=== PATIENT | male | born 1975 | race African-American/Black ===

== ENCOUNTER 2017-05-12 16:44 | Emergency (ER) | payer SELFPAY ==
[~2017-05-12] VITALS: Ht 172.7 cm; Wt 100.0 kg
[2017-05-12 16:45] VITALS: PULSE 76; RESP 18; TEMP 98.6; O2SAT 100
--- NOTE | 2017-05-12 17:14 | PD ---
HPI Chief Complaint: Altered Mental Status Time Seen by Provider: 17:13 Travel History International Travel<30 days: No Contact w/Intl Traveler<30days: No Traveled to known affect area: No History of Present Illness HPI 41-year-old male came to the emergency room with history headache that started all of a sudden while he was playing basketball today at around 1 PM. He says that since then he has been sort of confused and cannot recall few details. He has been nauseous along with the headache. Patient usually does not get headaches. His current headache is 10 out of 10 and it is mostly in the front. Vital signs are stable. Denies any headaches in the past. Patient had blood test and CAT scan ordered in triage. [facility] Past Medical History Narrative Medical List of his past medical, surgical, social and family history reviewed from the nursing note. Social History Tobacco Use: Yes Allergies-Medications (Allergen,Severity, Reaction): Coded Allergies: No Known Allergies (Unverified , 05/12/17) Comments No known drug allergies Reported Meds & Prescriptions Reported Meds & Active Scripts Active Zofran Odt (Ondansetron Odt) 4 Mg Tab 4 Mg SL Q6HR PRN Narrative Medication Waiting for the nurse to do the med reconciliation. Review of Systems Except as stated in HPI: all other systems reviewed are Neg Neurologic: Positive: Headache Physical Exam Narrative GENERAL: Awake, confused, significant distress SKIN: Focused skin assessment warm/dry. HEAD: Atraumatic. Normocephalic. EYES: Pupils equal and round. No scleral icterus. No injection or drainage. ENT: No nasal bleeding or discharge. Mucous membranes pink and moist. NECK: Trachea midline. No JVD. CARDIOVASCULAR: Regular rate and rhythm. No murmur appreciated. RESPIRATORY: No accessory muscle use. Clear to auscultation. Breath sounds equal bilaterally. GASTROINTESTINAL: Abdomen soft, non-tender, nondistended. Hepatic and splenic margins not palpable. MUSCULOSKELETAL: No obvious deformities. No clubbing. No cyanosis. No edema. NEUROLOGICAL: Awake and alert. No obvious cranial nerve deficits. Motor grossly within normal limits. Normal speech. PSYCHIATRIC: Appropriate mood and affect; insight and judgment normal. Data Data Last Documented VS Orders Orders Electrocardiogram (05/12/17 17:01) Prothrombin Time / Inr (Pt) (05/12/17 17:01) Act Partial Throm Time (Ptt) (05/12/17 17:01) Complete Blood Count With Diff (05/12/17 17:01) Comprehensive Metabolic Panel (05/12/17 17:01) Ct Brain W/O Iv Contrast(Rout) (05/12/17 17:01) Sodium Chlor 0.9% 1000 Ml Inj (Ns 1000 M (05/12/17 17:45) Prochlorperazine Inj (Compazine Inj) (05/12/17 17:45) Ketorolac Inj (Toradol Inj) (05/12/17 19:00) Influenzae A/B Antigen (05/12/17 18:47) Sodium Chlor 0.9% 1000 Ml Inj (Ns 1000 M (05/12/17 19:30) Labs Laboratory Tests Test 05/12/17 17:45 White Blood Count 8.0 TH/MM3 Red Blood Count 4.81 MIL/MM3 Hemoglobin 15.1 GM/DL Hematocrit 43.3 % Mean Corpuscular Volume 90.1 FL Mean Corpuscular Hemoglobin 31.5 PG Mean Corpuscular Hemoglobin Concent 34.9 % Red Cell Distribution Width 14.2 % Platelet Count 221 TH/MM3 Mean Platelet Volume 8.3 FL Neutrophils (%) (Auto) 64.5 % Lymphocytes (%) (Auto) 29.0 % Monocytes (%) (Auto) 5.6 % Eosinophils (%) (Auto) 0.5 % Basophils (%) (Auto) 0.4 % Neutrophils # (Auto) 5.2 TH/MM3 Lymphocytes # (Auto) 2.3 TH/MM3 Monocytes # (Auto) 0.5 TH/MM3 Eosinophils # (Auto) 0.0 TH/MM3 Basophils # (Auto) 0.0 TH/MM3 CBC Comment DIFF FINAL Differential Comment Prothrombin Time 10.9 SEC Prothromb Time International Ratio 1.1 RATIO Activated Partial Thromboplast Time 27.6 SEC Blood Urea Nitrogen 15 MG/DL Creatinine 1.26 MG/DL Random Glucose 104 MG/DL Total Protein 7.7 GM/DL Albumin 4.1 GM/DL Calcium Level 9.3 MG/DL Alkaline Phosphatase 100 U/L Aspartate Amino Transf (AST/SGOT) 36 U/L Alanine Aminotransferase (ALT/SGPT) 29 U/L Total Bilirubin 0.6 MG/DL Sodium Level 139 MEQ/L Potassium Level 3.8 MEQ/L Chloride Level 106 MEQ/L Carbon Dioxide Level 27.6 MEQ/L Anion Gap 5 MEQ/L Estimat Glomerular Filtration Rate 63 ML/MIN [facility] Medical Decision Making Medical Screen Exam Complete: Yes Emergency Medical Condition: Yes Medical Record Reviewed: Yes Interpretation(s) Twelve-lead EKG was reviewed by me. Normal sinus rhythm, normal axis, nonspecific ST-T wave changes. Heart rate of 63 bpm Differential Diagnosis Intracranial bleed, migraine headache Narrative Course 6:[address] scan is negative for intracranial bleed. Awaiting for the blood test. Patient was given IV fluid bolus and IV Compazine. 6:48 PM blood test results back and within acceptable limits. Patient has not given a urine sample yet. Head CT is negative. I went back and reassessed him and he says his headache feels little better. His neck was supple. He started having some chills. I have ordered influenza and IV Toradol. The case will be signed over to the oncoming ER physician. Procedures EKG Prior to Arrival: No Scripts Ondansetron Odt (Zofran Odt) 4 Mg Tab 4 MG SL Q6HR Y for Nausea/Vomiting, #7 TAB 0 Refills Prov: Andreina Trinidad MD 05/12/17 Anant Valencia MD May 12, 2017 17:14
[2017-05-12] MEDS ORDERED: SODIUM CHLOR 0.9% 1000 ML INJ 1,000 ML IV ONE ×2 (17:45→19:30)
[2017-05-12] MEDS ORDERED: PROCHLORPERAZINE INJ 10 MG/2 ML VIAL IV PUSH ONE (17:45)
--- NOTE | 2017-05-12 17:55 | RADRPT ---
EXAM DATE/TIME: 05/12/2017 17:43 [place] COMPARISON: No previous studies available for comparison. INDICATIONS : Blurred vision and cephalgia. RADIATION DOSE: 37.50 CTDIvol (mGy) MEDICAL HISTORY : None SURGICAL HISTORY : None. ENCOUNTER: Initial ACUITY: 1 day PAIN SCALE: 5/10 LOCATION: Bilateral cranial TECHNIQUE: Multiple contiguous axial images were obtained of the head. Using automated exposure control and adj ustment of the mA and/or kV according to patient size, radiation dose was kept as low as reasonably a chievable to obtain optimal diagnostic quality images. DICOM format image data is available electro nically for review and comparison. FINDINGS: CEREBRUM: The ventricles are normal for age. No evidence of midline shift, mass lesion, hemorrhage or acute in farction. No extra-axial fluid collections are seen. POSTERIOR FOSSA: The cerebellum and brainstem are intact. The 4th ventricle is midline. The cerebellopontine angle i s unremarkable. EXTRACRANIAL: The visualized portion of the orbits is intact. SKULL: The calvaria is intact. No evidence of skull fracture. CONCLUSION: Normal examination for a patient of this age. Christian Sanchez MD on May 12, 2017 at 17:52 Board Certified Radiologist. This report was verified electronically.
[2017-05-12 18:03] LABS: AUTOMATED NEUTROPHIL # 5.2 TH/MM3 (1.8-7.7); BASOPHIL % 0.4 % (0.0-2.0); EOSINOPHIL % 0.5 % (0.0-4.0); HEMATOCRIT 43.3 % (39.0-51.0); HEMOGLOBIN 15.1 GM/DL (13.0-17.0); LYMPHOCYTE # 2.3 TH/MM3 (1.0-4.8); MEAN CELL VOLUME 90.1 FL (80.0-100.0); MEAN CORPUSCULAR HEMOGLOBIN 31.5 PG (27.0-34.0); MEAN CORPUSCULAR HGB CONC 34.9 % (32.0-36.0); MEAN PLATELET VOLUME 8.3 FL (7.0-11.0); MONO % 5.6 % (0.0-8.0); MONOCYTE # 0.5 TH/MM3 (0-0.9); NEUT % 64.5 % (16.0-70.0); PLATELET COUNT 221 TH/MM3 (150-450); RED BLOOD COUNT 4.81 MIL/MM3 (4.50-5.90); RED CELL DISTRIBUTION WIDTH 14.2 % (11.6-17.2)
[2017-05-12 18:17] LABS: INTERNATIONAL NORMALIZED RATIO 1.1 RATIO; PROTHROMBIN TIME - PATIENT 10.9 SEC (9.8-11.6)
[2017-05-12 18:18] LABS: ALBUMIN 4.1 GM/DL (3.4-5.0); AST (GOT) 36 U/L (15-37); BICARBONATE 27.6 MEQ/L (21.0-32.0); BLOOD UREA NITROGEN 15 MG/DL (7-18); CALCIUM 9.3 MG/DL (8.5-10.1); CHLORIDE 106 MEQ/L (98-107); CREATININE 1.26 MG/DL (0.60-1.30); GLOMERULAR FILTRATION RATE 63 ML/MIN (>89); GLUCOSE,RANDOM 104 MG/DL (74-106); SODIUM (NA) 139 MEQ/L (136-145)
[2017-05-12 18:19] LABS: ALT (GPT) 29 U/L (12-78)
[2017-05-12 18:21] LABS: ALKALINE PHOSPHATASE 100 U/L (45-117); TOTAL BILIRUBIN ADULT 0.6 MG/DL (0.2-1.0); TOTAL PROTEIN 7.7 GM/DL (6.4-8.2)
[2017-05-12] MEDS ORDERED: KETOROLAC TROMETHAMINE 30 MG/ML (IVP) VIAL IV PUSH ONE (19:00)
--- NOTE | 2017-05-12 19:25 | PD ---
Physical Exam Narrative General: The patient is a well-developed well-nourished male in no acute distress. Head and Neck exam: Head is normocephalic atraumatic. Eyes: EOMI, pupils are equal round and reactive to light. Nose: Midline septum with pink mucous membranes Mouth: Dentition unremarkable. Moist mucus membranes. Posterior oropharynx is not erythematous. No tonsillar hypertrophy. Uvula midline. Airway patent. Neck: No palpable lymphadenopathy. No nuchal rigidity. No thyromegaly. Cardiovascular: Regular rate and rhythm without murmurs, gallops, or rubs. Lungs: Clear to auscultation bilaterally. No wheezes, rhonchi, or rales. Abdomen: Soft, without tenderness to palpation in all 4 quadrants of the abdomen. No guarding, rebound, or rigidity. Normal bowel sounds are audible. No tenderness on palpation of McBurney's point. Extremities: No clubbing, cyanosis, or edema. 2+ pulses in all 4 extremities. No calf tenderness on palpation. Back: No spinous process tenderness to palpation. No costovertebral angle tenderness to palpation. Neurologic Exam: Cranial nerves 2-12 were intact on exam. Strength is 5/5 in all 4 extremities. No sensory deficits noted. The patient is oriented now to person, place, time, and situation. Skin Exam: No rash noted. Intact skin that is warm and dry. Data Data Last Documented VS Vital Signs Date Time Temp Pulse Resp B/P (MAP) Pulse Ox O2 Delivery O2 Flow Rate FiO2 05/12/17 16:45 98.6 76 18 100 Room Air Orders Orders Electrocardiogram (05/12/17 17:01) Prothrombin Time / Inr (Pt) (05/12/17 17:01) Act Partial Throm Time (Ptt) (05/12/17 17:01) Complete Blood Count With Diff (05/12/17 17:01) Comprehensive Metabolic Panel (05/12/17 17:01) Urinalysis - C+S If Indicated (05/12/17 17:01) Ct Brain W/O Iv Contrast(Rout) (05/12/17 17:01) Sodium Chlor 0.9% 1000 Ml Inj (Ns 1000 M (05/12/17 17:45) Prochlorperazine Inj (Compazine Inj) (05/12/17 17:45) Ketorolac Inj (Toradol Inj) (05/12/17 19:00) Influenzae A/B Antigen (05/12/17 18:47) Electrocardiogram (05/12/17 ) Sodium Chlor 0.9% 1000 Ml Inj (Ns 1000 M (05/12/17 19:30) Labs Laboratory Tests Test 05/12/17 17:45 White Blood Count 8.0 TH/MM3 Red Blood Count 4.81 MIL/MM3 Hemoglobin 15.1 GM/DL Hematocrit 43.3 % Mean Corpuscular Volume 90.1 FL Mean Corpuscular Hemoglobin 31.5 PG Mean Corpuscular Hemoglobin Concent 34.9 % Red Cell Distribution Width 14.2 % Platelet Count 221 TH/MM3 Mean Platelet Volume 8.3 FL Neutrophils (%) (Auto) 64.5 % Lymphocytes (%) (Auto) 29.0 % Monocytes (%) (Auto) 5.6 % Eosinophils (%) (Auto) 0.5 % Basophils (%) (Auto) 0.4 % Neutrophils # (Auto) 5.2 TH/MM3 Lymphocytes # (Auto) 2.3 TH/MM3 Monocytes # (Auto) 0.5 TH/MM3 Eosinophils # (Auto) 0.0 TH/MM3 Basophils # (Auto) 0.0 TH/MM3 CBC Comment DIFF FINAL Differential Comment Prothrombin Time 10.9 SEC Prothromb Time International Ratio 1.1 RATIO Activated Partial Thromboplast Time 27.6 SEC Blood Urea Nitrogen 15 MG/DL Creatinine 1.26 MG/DL Random Glucose 104 MG/DL Total Protein 7.7 GM/DL Albumin 4.1 GM/DL Calcium Level 9.3 MG/DL Alkaline Phosphatase 100 U/L Aspartate Amino Transf (AST/SGOT) 36 U/L Alanine Aminotransferase (ALT/SGPT) 29 U/L Total Bilirubin 0.6 MG/DL Sodium Level 139 MEQ/L Potassium Level 3.8 MEQ/L Chloride Level 106 MEQ/L Carbon Dioxide Level 27.6 MEQ/L Anion Gap 5 MEQ/L Estimat Glomerular Filtration Rate 63 ML/MIN [facility] Medical Record Reviewed: Yes Supervised Visit with AIRAM: No Interpretation(s) Last Impressions Head CT 05/12/17 1701 Signed Impressions: Service Date/Time: Friday, May 12, 2017 17:43 - CONCLUSION: Normal examination for a patient of this age. Christian Sanchez MD Narrative Course During the course of the patient's emergency department visit, the patient's history, examination, and differential diagnosis were reviewed with the patient. The patient was placed on a wind up worker with oximetry and frequent blood pressure monitoring. The patient had IV access obtained and blood work sent for analysis. The patient was seen initially by Dr. Valencia. Please see her complete history and physical. The patient's case was checked out to be at the conclusion of her shift. The patient was initially provided Compazine 10 mg IV, normal saline 1 L IV fluid bolus, Toradol 30 mg IV The patient's laboratory studies were reviewed and remarkable for CBC within normal limits, CMP is within normal limits except for a GFR of 63, PT PTT within normal limits Radiology studies were reviewed and remarkable for a CT scan of the brain that shows no acute abnormality. The patient was reexamined by me and is now awake and alert, no nausea vomiting , headache improved, oriented to person, place, time, and situation. The Patient is resting comfortably and feels better, is alert and in no distress. The patient's results and examination findings were discussed with the patient. The repeat examination is unremarkable and benign. The history, exam, diagnostic testing, and current condition do not suggest any significant pathology to warrant further testing, continued ED treatment, admission, or surgical evaluation at this point. The vital signs have been stable. The patient does not have uncontrollable pain, intractable vomiting, or other significant symptoms. The patient's condition is stable and appropriate for discharge. The patient will pursue further outpatient evaluation with a primary care physician or other designated or consulting physician as indicated in the discharge instructions. The patient expressed understanding and was agreeable with this plan. Diagnosis Primary Impression: Headache Qualified Codes: R51 - Headache Additional Impression: Vomiting Qualified Codes: R11.2 - Nausea with vomiting, unspecified Referrals: Primary Care Physician 2 days Patient Instructions: General Headache (ED), General Instructions Med/Other Pt SpecificInfo: Prescription(s) given Scripts Ondansetron Odt (Zofran Odt) 4 Mg Tab 4 MG SL Q6HR Y for Nausea/Vomiting, #7 TAB 0 Refills Prov: Andreina Trinidad MD 05/12/17 Disposition: 01 DISCHARGE HOME Condition: Stable Andreina Trinidad MD May 12, 2017 19:25
[2017-05-12] MEDS ORDERED: ZOFR4TAB3 SL (20:27)
--- NOTE | 2017-05-13 12:53 | EKG ---
Date Performed: 05/12/2017 Time Performed: 18:54:15 PTAGE: 41 years EKG: Sinus rhythm WITH SINUS ARRHYTHMIA POSSIBLE RIGHT VENTRICULAR CONDUCTION DELAY NONSPECIFIC T-WAVE ABNORMALITY ABN ORMAL ECG NO PREVIOUS TRACING DOCTOR: Slim Huerta Interpretating Date/Time 05/13/2017 12:48:36
== END 2017-05-12 21:02 | disposition home or self-care (01) ==
LOC: NEPE 16:44
DX: R51 Headache (principal); R11.2 Nausea with vomiting, unspecified; R94.31 Abnormal electrocardiogram [ECG] [EKG]; Z72.0 Tobacco use
CPT/HCPCS: 70450; 80053; 85025; 85610; 85730; 87804; 93005; 96361; 96374; 96375; 99285; J0780; J1885; J7030